=== PATIENT | male | born 1985 | race American Indian/Alaskan Native ===

== ENCOUNTER 2021-04-03 01:02 | Emergency (ER) | payer SELFPAY ==
[2021-04-03 01:10] VITALS: BP 129/77
--- NOTE | 2021-04-03 01:49 | Emergency Department Report ---
- General Chief complaint: Skin/Abscess/Foreign Body Stated complaint: SOMETHING STUCK IN EAR Time Seen by Provider: 04/03/21 01:34 Source: patient Mode of arrival: Ambulatory Limitations: No Limitations - History of Present Illness Initial comments: 35-year-old male presents emerged department complaining of a moving foreign body to the left ear which he was unable to get with a Q-tip and with a hot shower minimal discomfort muscle feels very awkward due to the foreign body continuously moving around -: Sudden, This evening Improves with: none Worsens with: none Context: none - Related Data Allergies Allergy/AdvReac Type Severity Reaction Status Date / Time Sulfa (Sulfonamide Allergy Hives Verified 04/03/21 01:23 Antibiotics) Abscess Boil HPI - HPI Chief Complaint: Skin/Abscess/Foreign Body Stated Complaint: SOMETHING STUCK IN EAR Time Seen by Provider: 04/03/21 01:34 Allergies/Adverse Reactions: Allergies Allergy/AdvReac Type Severity Reaction Status Date / Time Sulfa (Sulfonamide Allergy Hives Verified 04/03/21 01:23 Antibiotics) ED Review of Systems ROS: Stated complaint: SOMETHING STUCK IN EAR Other details as noted in HPI Comment: All other systems reviewed and negative ED Past Medical Hx - Past Medical History Previous Medical History?: No - Surgical History Past Surgical History?: No - Social History Smoking Status: Never Smoker Substance Use Type: None ED Physical Exam - General Limitations: No Limitations General appearance: alert, in no apparent distress - Head Head exam: Present: atraumatic, normocephalic - Eye Eye exam: Present: normal appearance - ENT ENT exam: Present: mucous membranes moist, other (Insect visualized to the left ear canal) - Neck Neck exam: Present: normal inspection - Respiratory Respiratory exam: Present: normal lung sounds bilaterally. Absent: respiratory distress - Cardiovascular Cardiovascular Exam: Present: regular rate, normal rhythm. Absent: systolic murmur, diastolic murmur, rubs, gallop - GI/Abdominal GI/Abdominal exam: Present: soft, normal bowel sounds - Rectal Rectal exam: Present: deferred - Extremities Exam Extremities exam: Present: normal inspection - Back Exam Back exam: Present: normal inspection - Neurological Exam Neurological exam: Present: alert, oriented X3 - Psychiatric Psychiatric exam: Present: normal affect, normal mood - Skin Skin exam: Present: warm, dry, intact, normal color. Absent: rash ED Course Vital Signs 04/03/21 01:07 Temperature 98.6 F Pulse Rate 83 Respiratory 18 Rate Blood Pressure 129/77 O2 Sat by Pulse 98 Oximetry - Foreign Body Removal Ear Foreign Body Suspected: insect If Insect Suspected: ear canal inspected-intac Foreign Body Removed: yes Foreign Body Removal Technique: irrigation Tympanic Membrane Intact: Yes Patient Tolerated Procedure: well Complications: none Critical care attestation.: If time is entered above; I have spent that time in minutes in the direct care of this critically ill patient, excluding procedure time. ED Disposition Clinical Impression: Foreign body of ear, left Disposition: HOME / SELF CARE / HOMELESS Is pt being admited?: No Does the pt Need Aspirin: No Condition: Stable Instructions: Ear Foreign Body Referrals: [facility] [Provider Group] - 3-5 Days
== END 2021-04-03 05:29 | disposition home or self-care (01) ==
LOC: ED 01:02
DX: T16.2XXA Foreign body in left ear, initial encounter (principal); Z88.2 Allergy status to sulfonamides; X58.XXXA Exposure to other specified factors, initial encounter; Y93.89 Activity, other specified; Y92.89 Other specified places as the place of occurrence of the external cause; Y99.8 Other external cause status
CPT/HCPCS: 99283